=== PATIENT | female | born 1995 | race Two or more races ===

== ENCOUNTER 2017-05-15 20:50 | Emergency (ER) | payer OTHER ==
[~2017-05-15] VITALS: Ht 165.1 cm; Wt 68.0 kg
[~2017-05-15 20:50] MED LIST: NKM
[2017-05-15] MEDS ORDERED: IBUPROFEN600 MG ORAL (21:17)
[2017-05-15] MEDS ORDERED: ROBAXIN-750750 MG PO (21:17)
[2017-05-15 21:30] VITALS: BP 133/90
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
[2017-05-15 22:35] VITALS: BP 133/90
--- NOTE | 2017-05-16 11:53 | Diagnostic Imaging Report ---
Indication: PAIN Comparison: None Findings: 3 views of the left shoulder show no acute fractures or dislocations. Bony mineralization is normal. Acromioclavicular joint is within normal limits. Soft tissues are unremarkable. Impression: Negative left shoulder series.
== END 2017-05-15 22:35 | disposition home or self-care (01) ==
LOC: EDBD 20:50 → EMR 21:30
DX: S40.012A Contusion of left shoulder, initial encounter (principal); Y04.2XXA Assault by strike against or bumped into by another person, initial encounter; Y92.410 Unspecified street and highway as the place of occurrence of the external cause
CPT/HCPCS: 99284